=== PATIENT | female | born 1995 | race Caucasian/White ===

== ENCOUNTER 2017-04-07 17:39 | Emergency (ER) | END 2017-04-07 23:55 | disposition home or self-care (01) ==

== ENCOUNTER 2017-11-02 12:54 | Inpatient (IN) | END 2017-11-04 12:23 | disposition home or self-care (01) | DRG 775 ==

== ENCOUNTER 2018-01-23 20:19 | Emergency (ER) | payer OTHER ==
[~2018-01-23] VITALS: Ht 144.8 cm; Wt 57.5 kg
[~2018-01-23 20:19] MED LIST: PREN1TAB71
[2018-01-23 20:24] VITALS: BP 111/66; PULSE 68; RESP 18; Ht 144.8 cm; Wt 57.5 kg
[2018-01-23] MEDS ORDERED: KETOROLAC 30 MG INJ IM STA (22:18)
--- NOTE | 2018-01-23 22:56 | ERD ---
ER Documentation Chief Complaint Chief Complaint states glf yesterday, c/o right neck pain HPI This is a 23-year-old female who presents here in the emergency department with complaints of right-sided neck pain that started yesterday after having a ground-level fall. Patient stated that she was standing, tripped, fell to the right side. Landed on a plastic table. No loss of consciousness. LMP: January 16, 2018. A0. Denies direct head injury, loss of consciousness, difficulty swallowing, difficult breathing lying flat, shoulder pain, chest pain, back pain, abdominal pain, nausea, vomiting, constipation, diarrhea, urinary symptoms, loss of bowel bladder control, difficulty walking, numbness or tingling sensation, fever, chills, seizures. ROS All systems reviewed and are negative except as per history of present illness. Medications Home Meds Active Scripts Cyclobenzaprine Hcl* (Cyclobenzaprine Hcl*) 10 Mg Tablet, 10 MG PO Q12 PRN for MUSCLE SPASMS, #20 TAB Prov:PASILABAN,KLAR F 01/23/18 Ibuprofen* (Motrin*) 600 Mg Tab, 600 MG PO Q6H PRN for PAIN AND OR ELEVATED TEMP, #30 TAB Prov:PASILABAN,KLAR F 01/23/18 Reported Medications Vit No.130/Iron/FA ( Tablet) 1 Each Tablet, 1 EACH DAILY 11/02/17 Allergies Allergies: Coded Allergies: No Known Drug Allergies (Verified Allergy, Unknown, 04/07/15) cat dander (Verified Allergy, Unknown, 04/07/17) PMhx/Soc History of Surgery: No Anesthesia Reaction: No Hx Neurological Disorder: No Hx Respiratory Disorders: No Hx Cardiac Disorders: No Hx Psychiatric Problems: No Hx Miscellaneous Medical Probl: Yes (DEPRESSION) Hx Alcohol Use: No Hx Substance Use: No Hx Tobacco Use: No Physical Exam Vitals Vital Signs Date Temp Pulse Resp B/P (MAP) Pulse Ox O2 O2 Flow FiO2 Time Delivery Rate 01/23/18 98.0 68 18 111/66 98 20:24 (81) Physical Exam Const: No acute distress Head: Atraumatic Eyes: Normal Conjunctiva ENT: Normal External Ears, Nose and Mouth. Good and full range of motion of bilateral mandibular area. Neck: Full range of motion. No meningismus. C-spine is in midline and is no swelling/deformity/bulging/point of tenderness but has mild pain during range of motion. Resp: Clear to auscultation bilaterally Cardio: Regular rate and rhythm, no murmurs Abd: Soft, non tender, non distended. Normal bowel sounds Skin: No petechiae or rashes Back: No midline or flank tenderness. T-spine/L-spine are midline with good a nd full range of motion and is no swelling/deformity/bulging/point of tenderness. Ext: No cyanosis, or edema. Bilateral shoulders/clavicular area are unremarkable. Has good and full function of her bilateral upper extremities. Ambulatory with steady gait. No neurovascular deficits. Neur: Awake and alert. No neurological deficits. Psych: Normal Mood and Affect Results 24 hrs Laboratory Tests Test 01/23/18 22:41 POC Beta HCG, Qualitative NEGATIVE Current Medications Medications Dose Sig/Edd Start Time Status Last (Trade) Ordered Route PRN Stop Time Admin Dose Reason Admin Ketorolac 30 mg ONCE STAT 01/23/18 DC 01/23/18 Tromethamine IM 22:18 22:54 (Toradol) 01/23/18 22:19 Procedures/MDM Diagnostic tests: POC urine : Negative. X-ray of the C-spine: Normal cervical spine. Treatment: Toradol IM. Re-evaluation: C-spine is in midline with good and full range of motion and is no swelling/deformity/bulging. No neurological deficit. No neurovascular deficit. Ambulatory with steady gait. Stated that she feels much better at this time and that she is ready to go home. She also stated that she is comfortable going home. Differential diagnosis I have low suspicion for C-spine fracture, subluxation. Final diagnosis: Neck contusion. Prescription: Motrin. Flexeril. Follow-up with PCP in the next 24-48 hours. Come back here in the emergency department for any new symptoms or any worsening symptoms. All questions and concerns were answered. Patient and family members verbalized understanding and agreed with plan of care. Hemodynamically stable on discharge. Departure Diagnosis: Primary Impression: Neck pain Additional Impressions: Neck contusion Muscle spasm Condition: Stable Additional Instructions: Follow-up with PCP in the next 24-48 hours. Come back here in the emergency department for any new symptoms or any worsening symptoms. JIMBO OSULLIVAN Jan 23, 2018 22:56
[2018-01-23] MEDS ORDERED: CYCL10TA7 PO (22:57)
[2018-01-23] MEDS ORDERED: IBUP-1542 PO (22:57)
== END 2018-01-23 23:17 | disposition home or self-care (01) ==
LOC: FTE 20:19
DX: S10.93XA Contusion of unspecified part of neck, initial encounter (principal); W01.0XXA Fall on same level from slipping, tripping and stumbling without subsequent striking against object, initial encounter; Y92.9 Unspecified place or not applicable
CPT/HCPCS: 72040; 81025; 96372; J1885; Z7502